=== PATIENT | male | born 1985 ===

== ENCOUNTER 2021-07-02 00:58 | Emergency (ER) | payer MEDICAID, OTHER ==
[~2021-07-02] VITALS: Ht 193 cm; Wt 69.0 kg
[2021-07-02 01:09] VITALS: BP 129/59
[2021-07-02] MEDS ORDERED: OLANZAPINE 10 MG TABLET PO ONE (04:00)
[2021-07-02] MEDS ORDERED: LORazepam 1MG TABLET PO ONE (04:00)
[2021-07-02] MEDS ORDERED: OLANZAPINE 10 MG TABLET ONE (04:11)
[2021-07-02] MEDS ORDERED: LORazepam 1MG TABLET ONE (04:11)
[2021-07-02] MEDS ORDERED: PLEASE ENTER ALLERGIES MC SCH (04:30)
== END 2021-07-02 04:28 | disposition home or self-care (01) ==
LOC: ED 02:00
DX: F15.10 Other stimulant abuse, uncomplicated (principal); F22 Delusional disorders; H93.8X9 Other specified disorders of ear, unspecified ear
CPT/HCPCS: 99281